=== PATIENT | female | born 1955 | race Caucasian/White ===

== ENCOUNTER 2017-01-04 10:27 | Day surgery (SDC) | payer OTHER ==
[~2017-01-04 10:27] MED LIST: ADULT ASPIRIN81 MG; CALCIUM 500 MG1 TAB; LOVENOX30 MG/0.3; MAXALT MLT10 MG/TAB; MULTIVITAMIN1 CAP; TYLENOL650 MG
[2017-01-04] MEDS ORDERED: PROBIOTIC1 EA10 PO (10:58)
[2017-01-05] MEDS ORDERED: ULTRAM50 M1 PO (07:49)
== END 2017-01-05 08:49 ==
LOC: SHSA 10:27 → ORW 11:14 → PACU 12:43 → OBGF 13:50
PROC: 0UT94ZZ Resection of Uterus, Percutaneous Endoscopic Approach (ICD-10-PCS; principal; 2017-01-04)
PROC: 0UTC4ZZ Resection of Cervix, Percutaneous Endoscopic Approach (ICD-10-PCS; 2017-01-04)
PROC: 0UT24ZZ Resection of Bilateral Ovaries, Percutaneous Endoscopic Approach (ICD-10-PCS; 2017-01-04)
PROC: 0UT74ZZ Resection of Bilateral Fallopian Tubes, Percutaneous Endoscopic Approach (ICD-10-PCS; 2017-01-04)
DX: N83.312 Acquired atrophy of left ovary (principal); N83.311 Acquired atrophy of right ovary; D25.2 Subserosal leiomyoma of uterus; N85.8 Other specified noninflammatory disorders of uterus; G89.29 Other chronic pain; G43.909 Migraine, unspecified, not intractable, without status migrainosus; Z79.82 Long term (current) use of aspirin; Z79.899 Other long term (current) drug therapy; Z88.8 Allergy status to other drugs, medicaments and biological substances; Z91.040 Latex allergy status; Z96.643 Presence of artificial hip joint, bilateral
CPT/HCPCS: J0690; J7030